=== PATIENT | male | born 1970 | race Caucasian/White ===

== ENCOUNTER 2019-10-03 14:37 | Inpatient (IN) | payer SELFPAY ==
[~2019-10-03] VITALS: Ht 180.3 cm; Wt 100.0 kg
[2019-10-03 15:48] LABS: BASOPHILS 0.2 % (0-2); EOSINOPHILS 1.4 % (0-7); HEMATOCRIT 49.1 % (42.0-54.0); HEMOGLOBIN 16.5 g/dL (13.5-17.5); IMMATURE GRANULOCYTES 0.5 % (0-5); LYMPHOCYTES 22.8 % (15-50); MCH 34.4 pg (26.0-34.0); MCHC 33.6 g/dL (31.0-37.0); MCV 102.5 fL (80.0-100.0); MEAN PLATELET VOLUME 9.5 fL (7.4-10.4); MONOCYTES 7.9 % (2-11); NEUTROPHILS 67.2 % (40-80); PLATELET COUNT 238 10x3/uL (130-400); RBC 4.79 10x6/uL (4.20-6.10); RDW 13.1 % (11.5-14.5); WBC 6.6 10x3/uL (4.8-10.8)
[2019-10-03 16:00] VITALS: BP 142/88
[2019-10-03 16:03] LABS: CALC OSMOLALITY 273 mosm/kg (275-300); CALCIUM 8.8 mg/dL (8.5-10.1); CARBON DIOXIDE 25.8 mmol/L (21.0-32.0); CHLORIDE - SERUM 100 mmol/L (98-107); CREATININE - SERUM 0.7 mg/dL (0.6-1.3); GLUCOSE 94 mg/dL (74-106); POTASSIUM - SERUM 3.5 mmol/L (3.5-5.1); SODIUM 137 mmol/L (136-145); UREA NITROGEN 12 mg/dL (7-18); eGFR NON AFRICAN AMERICAN > 90 mL/min (90-120)
[2019-10-03 16:08] LABS: ALBUMIN 3.6 g/dL (3.4-5.0); ALKALINE PHOSPHATASE 100 U/L (30-120); ALT (SGPT) 36 U/L (10-68); BILIRUBIN - TOTAL 0.73 mg/dL (0.2-1.3); PROTEIN - SERUM 7.4 g/dL (6.4-8.2)
[2019-10-03 17:00] VITALS: BP 162/98
[2019-10-03 20:34] VITALS: BP 138/91
[2019-10-03 21:39] VITALS: BP 162/98; BMI 30.7
[2019-10-03 21:41] VITALS: Ht 180.3 cm; Wt 100.0 kg
[2019-10-04] VITALS (8 sets, daily range): BP systolic 134–147; BP diastolic 68–104
--- NOTE | 2019-10-04 02:39 | NUR ---
patient in room alert and orented x4 able to voice needs and wants to staff. IV 20g to right forearm with ns at 125 ml/hr. NPO at midnight for laparoscopic incarcerated ventral hernia repair with mesh. resting in bed with call light in reach no needs at this time no s/s of destress,
--- NOTE | 2019-10-04 04:20 | NUR ---
A&O X 4, SUPINE IN BED. AMBULATES INDEPENDENTLY. REMOVED FROM IV FLUIDS AND IV SALINE LOCKED AND COVERED FOR HIBICLENS SHOWER. PT REPORTS PAIN OF 7/10, STATES PAIN MEDICATION ONLY GIVES RELIEF FOR 30MINUTES-1HOUR. INFORMED OF NEXT ALLOWED PRN DOSE. NO FURTHER NEEDS VOICED AT THIS TIME, WILL CONTINUE TO MONITOR.
[2019-10-04 05:35] LABS: BASOPHILS 0.5 % (0-2); EOSINOPHILS 1.8 % (0-7); HEMATOCRIT 46.6 % (42.0-54.0); HEMOGLOBIN 15.3 g/dL (13.5-17.5); IMMATURE GRANULOCYTES 0.3 % (0-5); LYMPHOCYTES 35.1 % (15-50); MCH 34.2 pg (26.0-34.0); MCHC 32.8 g/dL (31.0-37.0); MCV 104.3 fL (80.0-100.0); MEAN PLATELET VOLUME 9.8 fL (7.4-10.4); MONOCYTES 8.9 % (2-11); NEUTROPHILS 53.4 % (40-80); PLATELET COUNT 245 10x3/uL (130-400); RBC 4.47 10x6/uL (4.20-6.10); RDW 13.4 % (11.5-14.5); WBC 6.5 10x3/uL (4.8-10.8)
--- NOTE | 2019-10-04 05:49 | NUR ---
INCENTIVE SPIROMETER PLACE AT BEDSIDE AND INSTRUCTIONS GIVEN. PT VERBALIZED UNDERSTANDING.
[2019-10-04 05:54] LABS: CALC OSMOLALITY 279 mosm/kg (275-300); CALCIUM 8.3 mg/dL (8.5-10.1); CARBON DIOXIDE 29.3 mmol/L (21.0-32.0); CHLORIDE - SERUM 103 mmol/L (98-107); GLUCOSE 85 mg/dL (74-106); POTASSIUM - SERUM 3.2 mmol/L (3.5-5.1); SODIUM 141 mmol/L (136-145); UREA NITROGEN 12 mg/dL (7-18)
[2019-10-04 06:09] LABS: CREATININE - SERUM 0.9 mg/dL (0.6-1.3); eGFR NON AFRICAN AMERICAN > 90 mL/min (90-120)
--- NOTE | 2019-10-04 07:22 | NUR ---
ALERT AND ORIENTED. LUNGS CLEAR BILATERALLY. HEART SOUNDS S1 AND S2 HEARD IN ALL MEADOWS. BOWEL SOUNDS ACTIVE X 4. IV TO RFA PATENT WITHOUT REDNESS. DENIES NEEDS. BED LOW. CALL VALDIVIA AND PERSONAL ITEMS IN REACH. WILL CONTINUE TO MONITOR.
--- NOTE | 2019-10-04 07:44 | NUR ---
SPOKE WITH DR PEDERSEN TO NOTIFY THAT PATIENT PRN MORPHINE "NOT WORKING" FOR PAIN CONTROL. NOTIFIED THAT PATIENT STATES IS ONLY LASTING ABOUT 30 MINUTES. NOTIFIED THAT PATIENT WANTS DIFFERENT PAIN MEDICATION. STATES "NO." WILL NOTIFY PATIENT.
[2019-10-04 08:20] LABS: APTT 30.8 SECONDS (22.8-39.4); INR 0.94 (0.85-1.17); PROTIME 12.6 SECONDS (11.6-15.0)
--- NOTE | 2019-10-04 08:42 | NUR ---
EKG PERFORMED PER ORDER. EKG LOOKS GOOD ON SCREEN BUT PRINTING WITH DARK BLURRY LINES ON PAPER. AWARE. STATES OK.
--- NOTE | 2019-10-04 12:21 | NUR ---
RESTING IN BED. REQUESTED AND GIVEN LEMON SWABS FOR MOUTH. DENIES FURTHER NEEDS. WILL CONTINUE TO MONITOR.
--- NOTE | 2019-10-04 12:46 | NUR ---
PREOP MEDS GIVEN PER ORDER.
[2019-10-04] MEDS ORDERED: CYCLOBENZAPRINE10 MG PO (15:14)
[2019-10-04] MEDS ORDERED: HYDROCODON-ACE1 EAC7 PO (15:14)
--- NOTE | 2019-10-04 16:07 | NUR ---
PATIENT RETURNED FROM PROCEDURE. CONCERNED ABOUT DC HOME. STATES NO ONE TO STAY WITH PATIENT TONIGHT IN HOME AND HAS STAIRS WOULD HAVE TO CLIMB. WILL SPEAK WITH MD.
--- NOTE | 2019-10-04 16:16 | NUR ---
SPOKE WITH DR PEDERSEN WHO STATES OK FOR PATIENT TO STAY OVERNIGHT. DC PAPERWORK PLACED ON CHART FOR TOMORROW.
[2019-10-05 00:02] VITALS: BP 137/95
[2019-10-05 04:45] VITALS: BP 122/76
--- NOTE | 2019-10-05 08:00 | NUR ---
ALERT AND ORIENTED. LUNGS CLEAR BILATERALLY. HEART SOUNDS S1 AND S2 HEARD IN ALL MEADOWS. BOWEL SOUNDS ACTIVE X 4. DRSG TO ABD MIDLINE C/D/I. LAP SITES X 3 C/D/I. IV TO RFA PATENT WITHOUT REDNESS. REQUESTING STRONGER PAIN MEDICATION. MD AWARE. NO ORDERS AT THIS TIME. STATES WILL SEE PATIENT. BED LOW. CALL VALDIVIA AND PERSONAL ITEMS IN REACH. WILL CONTINUE TO MONITOR.
[2019-10-05 08:54] VITALS: BP 130/90
--- NOTE | 2019-10-05 09:31 | NUR ---
FLEXERIL AND TORADOL GIVEN PER ORDER. MD ON FLOOR. STATES WILL SEE PATIENT BUT PATIENT TO DC TODAY AND NOT CHANGING HOME PAIN MEDICATIONS.
--- NOTE | 2019-10-05 09:38 | NUR ---
DR PEDERSEN ON FLOOR SAW PATIENT. STATES "GIVE HIM A DOSE OF MORPHINE IN ABOUT 30 MINUTES AND SEND HIM OUT." DISCHARGE DONE AND ON CHART.
--- NOTE | 2019-10-05 09:44 | NUR ---
[facility] PAPERWORK SIGNED BY PATIENT AND FAXED PER ORDER.
--- NOTE | 2019-10-05 10:26 | NUR ---
DISCHARGE EDUCATION PROVIDED BOTH WRITTEN AND VERBAL.VERBALIZED UNDERSTANDING. DENIES FURTHER QUESTIONS. RX FOR FLEXERIL AND NORCO PROVIDED TO PATIENT FOR DISCHARGE. WAITING ABD BINDER PRIOR TO DC. IV REMOVED FROM RFA WITH TIP INTACT.
--- NOTE | 2019-10-05 11:17 | NUR ---
PATIENT DC HOME WITH ALL BELONGINGS AND ABD BINDER.
== END 2019-10-05 11:17 | disposition home or self-care (01) | DRG 355 ==
LOC: D.ER 14:37 → D.MS 17:20
PROVIDERS: Family Medicine; ADMIT Surgery; ATTEND Surgery
PROC: 0WUF4JZ Supplement Abdominal Wall with Synthetic Substitute, Percutaneous Endoscopic Approach (ICD-10-PCS; principal; 2019-10-04 10:15)
DX: K43.6 Other and unspecified ventral hernia with obstruction, without gangrene (principal)

== ENCOUNTER 2020-02-14 20:30 | Emergency (ER) | payer SELFPAY ==
[~2020-02-14] VITALS: Ht 180.3 cm; Wt 98.6 kg
[~2020-02-14 20:30] MED LIST: CYCLOBENZAPRINE10 MG PO; HYDROCODON-ACE1 EAC7 PO
[2020-02-14 20:55] VITALS: BP 161/117; Ht 180.3 cm; Wt 98.6 kg
[2020-02-14] MEDS ORDERED: CYCLOBENZAPRINE5 MG PO (21:35)
[2020-02-14] MEDS ORDERED: DICLOFENAC SODI50 MG PO (21:35)
== END 2020-02-15 01:43 | disposition home or self-care (01) ==
LOC: D.ER 20:30
DX: M54.5 Low back pain (principal); G89.29 Other chronic pain; I10 Essential (primary) hypertension; Z72.0 Tobacco use